=== PATIENT | male | born 1935 | race African-American/Black ===

== ENCOUNTER 2017-09-23 14:03 | Emergency (ER) | payer MEDICARE, MEDICAID ==
[~2017-09-23] VITALS: Ht 185.4 cm; Wt 104.3 kg
[~2017-09-23 14:03] MED LIST: ACETAMINOP650 MG/20. PO; AMBIEN5 MG ORAL; AMBIEN5 MG PO; ASPIR 8181 MG ORAL; BACTRIM-DS1 EA ORAL; CATAPRES0.1 MG PO; COLCHICINE0.6 MG PO; COLCHINE PO; DEXILANT60 MG ORAL; DIOVAN160 MG PO; FUROSEMIDE40 MG ORAL; MULTIPLE VITAM1 EAC5 PO; NEURONTIN300 MG ORAL; NEURONTIN600 MG ORAL; NORCO 10-325 T1 EACH PO; NORCO 10/3251 EA ORAL; PLAVIX75 MG ORAL; PROMETHAZINE/COD5 ML PO; VITAMIN C500 M1 ORAL; ZINC SULFATE220 M1 ORAL; ZYLOPRIM300 MG PO
[2017-09-23 14:10] VITALS: BP 132/63
--- NOTE | 2017-09-23 14:21 | Emergency Room Report ---
History of Present Illness General Chief Complaint: General Complaint Source: Patient, Medical Record Present Illness HPI Patient presents with mass to the right side of the neck Patient himself reports that this was visualized by staff members today He denies any fevers or chills denies any chest pain or shortness of breath He is a dentulous denies any difficulty opening or closing the mouth The area of the neck is tender to palpation otherwise does not have significant discomfort denies any headache denies any posterior neck pain The area in question is localized to the right lateral aspect Allergies: Coded Allergies: No Known Allergies (Verified , 05/29/06) Patient History Past Medical History: see triage record Pertinent Family History: none Reviewed Nursing Documentation: PMH: Agreed; PSxH: Agreed Nursing Documentation-PMH Past Medical History: No History, Except For Hx Cardiac Problems: Yes - CHF Hx Hypertension: Yes Hx Pacemaker: No - PVD, CHRONIC AIRWAY OBSTRUCTION,ULCERS Hx Asthma: Yes Hx COPD: Yes Hx Cancer: No Hx Gastrointestinal Problems: Yes - gerd Hx Neurological Problems: No Review of Systems All Other Systems: negative except mentioned in HPI Physical Exam Vital Signs Date Time Temp Pulse Resp B/P (MAP) Pulse Ox O2 Delivery O2 Flow Rate FiO2 09/23/17 13:59 97.9 78 18 153/74 94 Room Air 97.9 Sp02 EP Interpretation: reviewed, normal General Appearance: well appearing, no apparent distress Head: normocephalic, atraumatic Eyes: bilateral eye PERRL, bilateral eye EOMI ENT: hearing grossly normal, normal pharynx, TMs + canals normal, uvula midline Neck: full range of motion, supple, no meningismus, no bony tend, other - Patient has palpable fluctuance to the right SCM region, area also appears to involve the lower parotid region and the angle of the mandible, no signs of trismus Respiratory: lungs clear, normal breath sounds, no rhonchi, no respiratory distress, no retraction, no accessory muscle use Cardiovascular #1: normal peripheral pulses, regular rate, rhythm, no edema, no gallop, no JVD, no murmur Gastrointestinal: normal bowel sounds, non tender, soft, no mass, no organomegaly, non-distended, no guarding, no hernia, no pulsatile mass, no rebound Genitourinary: no CVA tenderness Musculoskeletal: normal inspection Neurologic: oriented x3, responsive, valve fitter III-XII nml as tested, motor strength/ tone normal, sensory intact Psychiatric: mood/affect normal Skin: other - The swelling to the right lateral neck, is more noticeable when palpated, however there is some mild fullness appreciated as well subjectively Lymphatic: other - The area in question does not palpate in a circumscribed fashion, does not appear to be a palpable node Medical Decision Making Diagnostic Impression: Primary Impression: Neck mass ER Course Given the patient's history and presentation extensive blood work was initiated patient is complex also requiring CT imaging of the neck CT imaging does see evidence of 4.4 cm solid mass involving the right sternocleidomastoid Patient's blood work otherwise at baseline levels In discussion with the patient's primary physician requesting discussion with general surgery I did make contact with consultation the patient will be followed as an outpatient basis with further biopsy and testing Labs Test 09/23/17 14:30 White Blood Count 5.2 K/UL (4.8-10.8) Red Blood Count 5.75 M/UL (4.70-6.10) Hemoglobin 15.8 G/DL (14.2-18.0) Hematocrit 51.3 % (42.0-52.0) Mean Corpuscular Volume 89 FL (80-99) Mean Corpuscular Hemoglobin 27.5 PG (27.0-31.0) Mean Corpuscular Hemoglobin Concent 30.8 G/DL (32.0-36.0) Red Cell Distribution Width 14.9 % (11.6-14.8) Platelet Count 152 K/UL (150-450) Mean Platelet Volume 9.2 FL (6.5-10.1) Neutrophils (%) (Auto) 61.8 % (45.0-75.0) Lymphocytes (%) (Auto) 25.6 % (20.0-45.0) Monocytes (%) (Auto) 5.7 % (1.0-10.0) Eosinophils (%) (Auto) 5.4 % (0.0-3.0) Basophils (%) (Auto) 1.6 % (0.0-2.0) Sodium Level 140 MMOL/L (136-145) Potassium Level 3.7 MMOL/L (3.5-5.1) Chloride Level 105 MMOL/L (98-107) Carbon Dioxide Level 30 MMOL/L (21-32) Anion Gap 5 mmol/L (5-15) Blood Urea Nitrogen 16 mg/dL (7-18) Creatinine 1.2 MG/DL (0.55-1.30) Estimat Glomerular Filtration Rate mL/min (>60) Glucose Level 104 MG/DL (74-106) Lactic Acid Level 1.10 mmol/L (0.66-2.22) Calcium Level 8.6 MG/DL (8.5-10.1) Total Bilirubin 0.5 MG/DL (0.2-1.0) Aspartate Amino Transf (AST/SGOT) 77 U/L (15-37) Alanine Aminotransferase (ALT/SGPT) 94 U/L (12-78) Alkaline Phosphatase 142 U/L (46-116) Total Creatine Kinase 93 U/L (26-308) Creatine Kinase MB 0.8 NG/ML (0.0-3.6) Creatine Kinase MB Relative Index 0.8 Total Protein 8.1 G/DL (6.4-8.2) Albumin 3.2 G/DL (3.4-5.0) Globulin 4.9 g/dL Albumin/Globulin Ratio 0.7 (1.0-2.7) Lipase 56 U/L (73-393) CT/MRI/US Diagnostic Results CT/MRI/US Diagnostic Results : Impression CT neckIMPRESSION: Right-sided neck mass as detailed above highly concerning for malignancy. Cancer workup and surgical/ENT referral/evaluation recommended. Mixing artifact versus thrombus in the right internal jugular vein adjacent to the mass. Cervical lymphadenopathy. Aberrant right subclavian artery. Emphysema with hypoventilatory changes versus pneumonitis and/or edema partially visualized in the lung apices. Last Vital Signs Date Time Temp Pulse Resp B/P (MAP) Pulse Ox O2 Delivery O2 Flow Rate FiO2 09/23/17 13:59 97.9 78 18 153/74 94 Room Air 97.9 Status: improved Disposition: XFER SNF Condition: Stable Additional Instructions: Urgent follow-up outpatient by general surgery Brooke Conway DO Sep 23, 2017 14:21
[2017-09-23 14:30] VITALS: BP 132/63
[2017-09-23 14:46] LABS: BASOPHILS % (AUTO) 1.6 % (0.0-2.0); EOSINOPHILS % (AUTO) 5.4 % (0.0-3.0); HEMATOCRIT 51.3 % (42.0-52.0); HEMOGLOBIN 15.8 G/DL (14.2-18.0); LYMPHOCYTES % (AUTO) 25.6 % (20.0-45.0); MEAN CORPUSCULAR VOLUME 89 FL (80-99); MONOCYTES % (AUTO) 5.7 % (1.0-10.0); NEUTROPHILS % (AUTO) 61.8 % (45.0-75.0); PLATELET COUNT 152 K/UL (150-450); RED BLOOD COUNT 5.75 M/UL (4.70-6.10); RED CELL DISTRIBUTION WIDTH 14.9 % (11.6-14.8); WHITE BLOOD COUNT 5.2 K/UL (4.8-10.8)
[2017-09-23 14:57] LABS: ANION GAP 5 mmol/L (5-15); BLOOD UREA NITROGEN 16 mg/dL (7-18); CALCIUM 8.6 MG/DL (8.5-10.1); CARBON DIOXIDE 30 MMOL/L (21-32); CHLORIDE 105 MMOL/L (98-107); CREATININE 1.2 MG/DL (0.55-1.30); POTASSIUM 3.7 MMOL/L (3.5-5.1); SODIUM 140 MMOL/L (136-145)
[2017-09-23 15:18] LABS: ALANINE AMINOTRANSFERASE 94 U/L (12-78); ALBUMIN 3.2 G/DL (3.4-5.0); ALBUMIN/GLOBULIN RATIO 0.7 (1.0-2.7); ALKALINE PHOSPHATASE 142 U/L (46-116); ASPARTATE AMINO TRANSFERASE 77 U/L (15-37); BILIRUBIN,TOTAL 0.5 MG/DL (0.2-1.0); CKMB 0.8 NG/ML (0.0-3.6); CREATINE KINASE 93 U/L (26-308)
--- NOTE | 2017-09-23 17:29 | Diagnostic Imaging Report ---
Indication: Dyspnea Technique: XRAY Chest 1v Comparison: 02/18/2012 Findings: Heart size is within normal limits. Atherosclerotic calcifications noted in the aortic arch. There is interstitial opacification and patchy bilateral airspace opacities. Question trace left pleural effusion. No pneumothorax. No acute osseous abnormality seen. Impression: Interstitial and hazy airspace opacities suggesting a degree of fluid overload/CHF. Pneumonia is not entirely excluded. Clinical correlation and follow-up exam recommended.
[2017-09-23 18:12] VITALS: BP 139/60
[2017-09-23 19:01] VITALS: BP 146/69
--- NOTE | 2017-09-23 19:28 | Diagnostic Imaging Report ---
Indication: Neck mass Technique: CT of the soft tissues of the neck utilizing automated exposure control with intravenous contrast. Venous scanning performed. Sagittal and coronal reformats. CT dose: Total DLP 616.02 mGycm; CTDI vol 19.51 mGy Comparison: None Findings: There is a solid mass lesion measuring approximately 4.4 cm located between the right sternocleidomastoid muscle and the right carotid space at level of the hyoid bone. A distinct fat plane between the mass and the sternocleidomastoid muscle is not seen and infiltration/extension to the right sternocleidomastoid muscle is not excluded. There is effacement of fat planes by the mass between the right carotid space, right mucosal pharyngeal space and right submandibular space. There is asymmetric thickening/enlargement of the right right mucosal pharyngeal space/hypopharynx with effacement of the right piriform sinus. There is obliteration of the lower portions of the right internal jugular vein with mixing artifact or thrombus in the more superior portions of the right internal jugular vein (series 5 image #26). Tumor invasion into the internal jugular vein on the right is not excluded. There is right-sided cervical lymphadenopathy, with a right-sided jugular chain lymph node measuring up to 11 mm in short axis. Small lymph nodes are also noted on the left. The airway is patent. Thoracic aorta appears normal in caliber with mild atherosclerotic calcification. There is an aberrant right subclavian artery which is mild to moderately calcified. Carotid arteries and vertebral arteries appear patent. Imaged intracranial structures grossly unremarkable. Patient is edentulous. There are multilevel degenerative changes of the cervical spine. There is pulmonary emphysema with hypoventilatory changes or pneumonitis in the visualized upper lungs. IMPRESSION: Right-sided neck mass as detailed above highly concerning for malignancy. Cancer workup and surgical/ENT referral/evaluation recommended. Mixing artifact versus thrombus in the right internal jugular vein adjacent to the mass. Cervical lymphadenopathy. Aberrant right subclavian artery. Emphysema with hypoventilatory changes versus pneumonitis and/or edema partially visualized in the lung apices. The CT scanner at [facility] is accredited by the [employer] and the scans are performed using protocols designed to limit radiation exposure to as low as reasonably achievable to attain images of sufficient resolution adequate for diagnostic evaluation.
[2017-09-23 20:00] VITALS: BP 144/99
[2017-09-23 20:15] VITALS: BP 144/99
== END 2017-09-23 20:15 ==
LOC: EDBD 14:03 → EMR 14:25
DX: R22.1 Localized swelling, mass and lump, neck (principal); J44.9 Chronic obstructive pulmonary disease, unspecified; I11.0 Hypertensive heart disease with heart failure; I50.9 Heart failure, unspecified; K21.9 Gastro-esophageal reflux disease without esophagitis; R59.0 Localized enlarged lymph nodes
CPT/HCPCS: 36415; 70491; 71045; 80053; 82550; 82553; 83605; 83690; 85025; 87040; 93005; 99284; Q9967

== ENCOUNTER 2017-10-12 06:41 | Day surgery (SDC) | payer MEDICARE, MEDICAID ==
[~2017-10-12] VITALS: Ht 172.7 cm; Wt 99.8 kg
[2017-10-12] VITALS (10 sets, daily range): BP systolic 126–156; BP diastolic 63–77
[2017-10-12] MEDS ORDERED: LATANOPROST2.5 ML BOTH EYES (09:15)
[2017-10-12] MEDS ORDERED: Lidocaine 1% 10mg/ml/Epi 0.005mg/ml 30ml vial INJ ONE (09:57)
[2017-10-12] MEDS ORDERED: Lidocaine 1% MPF 10mg/ml 5ml ONE (10:34)
[2017-10-12] MEDS ORDERED: Propofol 200mg/20ml IV ONE (10:34)
[2017-10-12] MEDS ORDERED: fentaNYL 100 mcg/2 mL IV ONE (11:00)
[2017-10-12] MEDS ORDERED: LR 1000ml ONE (11:00)
[2017-10-12] MEDS ORDERED: Midazolam 2mg/2ml Inj ONE (11:00)
[2017-10-12] MEDS ORDERED: NS Irrig 1000ml ONE (11:00)
[2017-10-12] MEDS ORDERED: Sterile Water Irrig 1000ml IRRIG ONE (11:00)
--- NOTE | 2017-10-12 11:06 | Anethesia Preoperative Eval ---
Anesthesia Pre-op PMH/ROS General Date of Evaluation: Oct 12, 2017 Time of Evaluation: 10:40 Anesthesiologist: Isa ASA Score: ASA 3 Mallampati Score Class I : Soft palate, uvula, fauces, pillars visible Class II: Soft palate, uvula, fauces visible Class III: Soft palate, base of uvula visible Class IV: Only hard plate visible Mallampati Classification: Class III Surgeon: Félix Diagnosis: R neck mass Surgical Procedure: R neck Bx Anesthesia History: none Family History: no anesthesia problems Allergies: Coded Allergies: No Known Allergies (Verified , 05/29/06) Past Medical History Cardiovascular: Reports: HTN, CAD; Denies: [place], valve dz, arrhythmia Pulmonary: Reports: COPD; Denies: asthma, KRYSTAL, other Gastrointestinal/Genitourinary: Reports: GERD, CRI; Denies: ESRD, other Neurologic/Psychiatric: Reports: depression/anxiety; Denies: dementia, CVA, TIA, other Endocrine: Reports: DM; Denies: hypothyroidism, steroids, other HEENT: Denies: cataract (L), cataract (R), glaucoma, MAKAH (L), MAKAH (R), other Hematology/Immune: Reports: bleeding disorder - anticoagulated; Denies: anemia, DVT, other Musculoskeletal/Integumentary: Reports: DJD; Denies: OA, RA, DDD, edema, other Other: obesity PMH Narrative: as above PSxH Narrative: R foot transmetatarsal amputation Anesthesia Pre-op Phys. Exam Physician Exam Last Vital Signs Date Time Temp Pulse Resp B/P (MAP) Pulse Ox O2 Delivery O2 Flow Rate FiO2 10/12/17 08:25 97.7 72 18 141/71 97 Room Air 97.7 Constitutional: NAD Neurologic: CN 2-12 intact Cardiovascular: RRR, no M/R/G Respiratory: CTA Gastrointestinal: other - obesity Airway Exam Mallampati Score: Class III MO: limited Neck: stiff Teeth: missing Dentures: no upper, no lower Anesthesia Pre-op A/P Labs Coagulation Test 10/12/17 09:00 Prothrombin Time 10.0 SEC (9.30-11.50) Prothromb Time International Ratio 1.0 (0.9-1.1) Activated Partial Thromboplast Time 31 SEC (23-33) Risk Assessment & Plan Assessment: ASA 3 Plan: GA with LMA Status Change Before Surgery: No Pre-Antibiotics Drug: Ancef 1 gr. Given Within 1 Hr of Incision: Yes Time Given: 11:06 BLANCA BURRELL M.D. Oct 12, 2017 11:06
[2017-10-12] MEDS ORDERED: LR 1000ml 1,000 ML IVLG SCH (11:17)
--- NOTE | 2017-10-12 11:27 | Pre-Procedure Note/Attestation ---
Pre-Procedure Note/Attestation Complete Prior to Procedure Planned Procedure: right Procedure Narrative: biopsy of right neck mass Indications for Procedure Pre-Operative Diagnosis: right neck mass Attestation I attest that I discussed the nature of the procedure; its benefits; risks and complications; and alternatives (and the risks and benefits of such alternatives ), prior to the procedure, with the patient (or the patient's legal sales representative groceries). I attest that, if there was a reasonable possibility of needing a blood transfusion, the patient (or the patient's legal sales representative groceries) was given the [facility] standardized written summary, pursuant to the Devante Scar Blood Safety Act ([place] Health and Safety Code # 1645, as amended). I attest that I re-evaluated the patient just prior to the surgery and that there has been no change in the patient's H&P, except as documented below: Lorenzo Quintero Oct 12, 2017 11:27
--- NOTE | 2017-10-12 11:27 | Brief Operative Note ---
Immediate Post Operative Note Operative Note Pre-op Diagnosis: right neck mass Procedure: biopsy of right neck mass Post-op Diagnosis: same as pre-op Surgeon: chandu Anesthesiologist: gabe Anesthesia: general, local Specimen: yes Complications: none Condition: stable Fluids: see records Estimated Blood Loss: minimal Drains: none Implant(s) used?: No Lorenzo Quintero Oct 12, 2017 11:27
[2017-10-12] MEDS ORDERED: fentaNYL 100 mcg/2 mL IV PRN (11:30)
[2017-10-12] MEDS ORDERED: DiphenhydrAMINE 50mg/ml Inj IVP PRN (11:30)
--- NOTE | 2017-10-12 11:44 | Immediate Post-Op Evaluation ---
Immediate Post-Op Evalulation Immediate Post-Op Evalulation Procedure: R neck excisional Bx Date of Evaluation: Oct 12, 2017 Time of Evaluation: 11:42 IV Fluids: 800 Blood Products: none Estimated Blood Loss: 50 Urinary Output: none Blood Pressure Systolic: 128 Blood Pressure Diastolic: 70 Pulse Rate: 85 Respiratory Rate: 20 O2 Sat by Pulse Oximetry: 99 Temperature (Fahrenheit): 97.6 Pain Score (1-10): 1 Nausea: No Vomiting: No Complications none Patient Status: reacts, patent, none Hydration Status: adequate BLANCA BURRELL M.D. Oct 12, 2017 11:44
[2017-10-12] MEDS ORDERED: Norco 5mg/325mg tab ORAL PRN (13:30)
[2017-10-12] MEDS ORDERED: Tylenol #3 tab (300mg/30mg) ORAL PRN (13:30)
[2017-10-12] MEDS ORDERED: D5 1/2NS 1,000 ML IV SCH (13:30)
--- NOTE | 2017-10-12 20:45 | Operative Note - Dictated ---
DATE OF OPERATION: 10/12/2017 PREOPERATIVE DIAGNOSIS: Right neck mass. POSTOPERATIVE DIAGNOSIS: Right neck mass. OPERATION PERFORMED: Biopsy of right neck mass. ATTENDING SURGEON: Lorenzo Quintero M.D. GRANITE SANDBLASTER APPRENTICE: None. ANESTHESIOLOGIST: Stephen Moss M.D. ANESTHESIA: General RISK MODELER plus local. SPECIMENS: Multiple 18-gauge core biopsies of right neck mass. COMPLICATIONS: None. CONDITION: Stable. FLUIDS: Please see anesthesia records. ESTIMATED BLOOD LOSS: Minimal. DRAINS: None. IMPLANTS: None. WOUND CLASSIFICATION: Class 1. ANTIBIOTICS: The patient was given 2 g IV Ancef 1 hour prior to cut time. COUNTS: Sponge and needle count correct x2. INDICATIONS FOR PROCEDURE: This is an 82-year-old male, alf resident, who few weeks ago was noted to have a worsening tender growing right neck mass. The patient was brought to the emergency department for evaluation and had a CT scan, which identified a large compressing right neck mass with thrombosed internal jugular, but without any tracheal deviation. The patient was deemed stable at that time and discharged and came to follow up with me. I was able to see the patient in the nursing facility that he resides and evaluated and noted a large tender right neck mass that was more fixed than mobile. Given these findings of biopsy, there was a high suspicion for particularly a malignant process given the patient's long smoking tobacco history. Given this, biopsy was indicated and recommended. Given the location of the mass and it is detailed as above and noted on the CT, recommendation was made to have a biopsy done in the operating room under close observation. Risks, benefits, and alternatives were discussed with the patient and his daughter at bedside, who consented to surgery. The biopsy was indicated and recommended to be done as soon as possible for tissue diagnosis. OPERATIVE NOTE: The patient was taken to the operating room and placed on the operating table in supine position with bilateral arms out. All bony prominences were well padded. Preoperative time-out was taken in identifying the patient, operative procedure, operating room surgery, procedure, and surgical staff. Side was marked preoperatively. SCDs were placed. General anesthesia was induced and the patient was intubated. The right neck was prepped and draped in the standard surgical fashion. The mass was easily palpable and identified. A 1 to 2 cm incision was made overlying the apex of the mass and carried down through the platysma and muscles to the mass, which was noted to be hard, firm, and with a whitish discoloration and hypervascular. Multiple 18-gauge [place] core biopsies were taken of the mass and sent to pathology for review. Hemostasis was achieved with electrocautery and pressure as necessary. Upon completion, local anesthetic was infiltrated throughout the operative site. At this time, the wound was closed in a two-layer fashion beginning with the platysmal layer using a 3-0 Vicryl suture followed by skin using 4-0 Monocryl subcuticular suture. The patient tolerated the procedure well. Dressings were applied. The patient was sent to the PACU in stable condition. Lorenzo Quintero M.D. DR: DARRELL JOB#: [id number] CC: MARIELENA
== END 2017-10-12 15:05 | disposition home or self-care (01) ==
LOC: SUR 06:41
DX: C76.0 Malignant neoplasm of head, face and neck (principal); I11.9 Hypertensive heart disease without heart failure; J44.9 Chronic obstructive pulmonary disease, unspecified; K21.9 Gastro-esophageal reflux disease without esophagitis; E11.9 Type 2 diabetes mellitus without complications; M19.90 Unspecified osteoarthritis, unspecified site; E66.9 Obesity, unspecified; Z68.33 Body mass index [BMI] 33.0-33.9, adult
CPT/HCPCS: 21550; 36415; 85610; 85730; J0690; J2250; J2704; J3010; J7120; 94003; 94150

== ENCOUNTER 2017-11-25 12:55 | Outpatient (CLI) | payer MEDICARE, MEDICAID ==
[~2017-11-25 12:55] MED LIST changes: +LATANOPROST2.5 ML BOTH EYES
--- NOTE | 2017-11-25 17:28 | GI Initial Consult Note ---
History of Present Illness General Date patient seen: Nov 25, 2017 Time patient seen: 15:00 Referring physician: SHANTANU Reason for Consultation: PEG Present Illness HPI HISTORY OF PRESENT ILLNESS: This is a 82-year-old male with history of peripheral vascular disease and heavy smoker in the past who presents for PEG placement. The patient is a senior living resident, who few months ago was noted to have a worsening tender growing right neck mass. The patient was brought to the emergency department for evaluation and had a CT scan, which identified a large compressing right neck mass with thrombosed internal jugular, but without any tracheal deviation. The patient is now s/p biopsy of the right neck mass, scheduled for chemotherapy, thus referred to us for PEG placement for future anticipation of dysphagia. Pt presents today with GI symptoms. Denies any unintentional weight loss or changes in dietary habits. Patient is a fall risk, uses wheelchair but able to ambulate short distances. Home Meds Reported Medications Latanoprost* (XALATAN*) 2.5 Ml Drops, 1 DROP BOTH EYES BEDTIME, ML 0 Refills 10/12/17 Multivitamin With Minerals (MULTIPLE VITAMIN) 1 Each Tablet, 1 EACH PO, TAB 04/16/14 Zolpidem Tartrate* (AMBIEN*) 5 Mg Tablet, 5 MG ORAL BEDTIME PRN for Insomnia, TAB 04/16/14 Clopidogrel Bisulfate* (PLAVIX*) 75 Mg Tablet, 75 MG ORAL DAILY, TAB 03/19/14 Aspirin* (ASPIR 81*) 81 Mg Tablet.dr, 81 MG ORAL DAILY, TAB 03/19/14 Gabapentin* (NEURONTIN*) 600 Mg Tablet, 600 MG ORAL HS, TAB 03/19/14 Gabapentin (Neurontin) 300 Mg Cap, 300 MG ORAL THREE TIMES A DAY, #15 CAP 0 Refills 03/19/14 Furosemide* (LASIX*) 40 Mg Tablet, 40 MG ORAL BID, TAB 03/19/14 Hydrocodone/Acetaminophen (Hydrocodon-Acetaminophn 10-325) 1 Ea Tab, 1 TAB ORAL Q4H PRN for For Pain, #30 TAB 0 Refills 03/19/14 Colchicine* (COLCHICINE*) 0.6 Mg Tablet, 0.6 MG PO BID 08/03/12 Acetaminophen* (TYLENOL*) 650 Mg/20.3 Ml Oral.susp, 650 MG PO PRN Q4H PRN TEMP> 100 07/07/12 Hydrocodone Bit/Acetaminophen 10-325* (NORCO 10-325*) 1 Each Tablet, 1 TAB PO PRN Q6H, #10 TAB PRN PAIN 07/07/12 Promethazine/Codeine* (PROMETHAZINE/CODEINE*) 5 Ml Udc, 5 ML PO PRN Q8H, #2 OZ Take 1 teaspoon by mouth every four hours as needed for cough 07/07/12 Allopurinol* (ZYLOPRIM*) 300 Mg Tablet, 300 MG PO DAILY, #15 TAB 07/07/12 Med list reviewed/reconciled: Yes Allergies: Coded Allergies: No Known Allergies (Verified , 05/29/06) Patient History History Provided By: Patient, Medical Record [facility] Narrative Includes history of hypertension, CHF, COPD, and gastroesophageal reflux disease. The patient has a history of peripheral vascular disease and has had vascular surgeries of the lower extremities. Review of Systems All Other Systems: negative except mentioned in HPI Physical Exam T 97.6 BP 115/94 P 73 94 RA HT 5'8 BP 220.3lbs Sp02 EP Interpretation: reviewed, normal General Appearance: well appearing, no apparent distress, alert Head: normocephalic EENT: PERRL/EOMI, normal ENT inspection Neck: supple Respiratory: normal breath sounds, no respiratory distress Cardiovascular: normal rate Gastrointestinal: normal inspection, non tender, soft, normal bowel sounds, non -distended Rectal: deferred Genitourinary: deferred Musculoskeletal: normal inspection, back normal Neurologic: normal inspection, alert, oriented x3, responsive Psychiatric: normal inspection, judgement/insight normal, memory normal Skin: normal inspection, normal color, no rash, warm/dry, palpation normal, well hydrated Lymphatic: normal inspection, no adenopathy GI: Plan Problems: (1) Encounter for PEG (percutaneous endoscopic gastrostomy) (2) Encounter for chemotherapy management (3) Neck mass Plan EGD/PEG scheduled for 12/29/17. - NPO @ [place] day prior procedure explained. - orders sent in patient chart Seen with Dr. Crespo. Thank you for this patient referral. The patient was seen and examined at bedside and all new and available data was reviewed in the patients chart. I agree with the above findings, impression and plan. (Patient seen earlier today. Signature stamp does not reflect patient encounter time.). - MD Xiomara [facility] ILLUSTRATOR Nov 25, 2017 17:28
== END 2017-11-25 13:28 | disposition home or self-care (01) ==
LOC: PAN 12:55
DX: R22.1 Localized swelling, mass and lump, neck (principal); I50.9 Heart failure, unspecified; I10 Essential (primary) hypertension; J44.9 Chronic obstructive pulmonary disease, unspecified; K21.9 Gastro-esophageal reflux disease without esophagitis; Z91.81 History of falling
CPT/HCPCS: 99202

== ENCOUNTER 2017-11-29 08:26 | Day surgery (SDC) | payer MEDICARE, MEDICAID ==
[~2017-11-29] VITALS: Ht 170.2 cm; Wt 99.8 kg
[2017-11-29] VITALS (7 sets, daily range): BP systolic 150–168; BP diastolic 83–101
--- NOTE | 2017-11-29 06:36 | Anethesia Preoperative Eval ---
Anesthesia Pre-op PMH/ROS General Date of Evaluation: Nov 29, 2017 Time of Evaluation: 06:30 Anesthesiologist: gail ASA Score: ASA 4 Mallampati Score Class I : Soft palate, uvula, fauces, pillars visible Class II: Soft palate, uvula, fauces visible Class III: Soft palate, base of uvula visible Class IV: Only hard plate visible Mallampati Classification: Class III Surgeon: stephanie Diagnosis: gerd Surgical Procedure: egd w/ PEG Anesthesia History: none Family History: no anesthesia problems Allergies: Coded Allergies: No Known Allergies (Verified , 05/29/06) Medications: see eMAR Past Medical History Cardiovascular: Reports: HTN, other - chf, pacemaker, Pulmonary: Reports: asthma, COPD Gastrointestinal/Genitourinary: Reports: GERD Musculoskeletal/Integumentary: Reports: other - gout, right foot/toes amputations Anesthesia Pre-op Phys. Exam Physician Exam Constitutional: NAD Neurologic: CN 2-12 intact Cardiovascular: RRR Respiratory: CTA Gastrointestinal: S/NT/ND Airway Exam Mallampati Score: Class II MO: limited Neck: humphrey lateral neck fullness TMD: 2fb ROM: limited Teeth: missing Anesthesia Pre-op A/P Studies Pre-op Studies: EKG - nsr Risk Assessment & Plan Assessment: asa4 Plan: mac Status Change Before Surgery: No Pre-Antibiotics Drug: Natividad Torres MD Nov 29, 2017 06:36
[~2017-11-29 08:26] MED LIST changes: +Atropine Inj 1mg/10ml Syr IV PRN; +DiphenhydrAMINE 50mg/ml Inj IVP PRN; +Midazolam 2mg/2ml Inj IVP PRN; +fentaNYL 100 mcg/2 mL IV PRN
[2017-11-29] MEDS ORDERED: Lidocaine 1% MPF 10mg/ml 5ml ONE (08:27)
[2017-11-29] MEDS ORDERED: Propofol 200mg/20ml IV ONE (08:27)
[2017-11-29] MEDS ORDERED: cefOXitin 1gm Inj ONE (08:27)
--- NOTE | 2017-11-29 09:48 | Short Stay Surgery H&P ---
History of Present Illness History of Present Illness Chief Complaint see recent consult note HPI Deepak Valentino is a 82 year old male who was admitted on for GERD Patient History Allergies: Coded Allergies: No Known Allergies (Verified , 05/29/06) Medication History Scheduled Acetaminophen* (Tylenol*), 650 MG PO PRN Q4H PRN TEMP>100, (Reported) Allopurinol* (Zyloprim*), 300 MG PO DAILY, (Reported) Aspirin* (Aspir 81*), 81 MG ORAL DAILY, (Reported) Clopidogrel Bisulfate* (Plavix*), 75 MG ORAL DAILY, (Reported) Colchicine* (Colchicine*), 0.6 MG PO BID, (Reported) Furosemide* (Lasix*), 40 MG ORAL BID, (Reported) Gabapentin (Neurontin), 300 MG ORAL THREE TIMES A DAY, (Reported) Gabapentin* (Neurontin*), 600 MG ORAL HS, (Reported) Hydrocodone Bit/Acetaminophen 10-325* ([place] 10-325*), 1 TAB PO PRN Q6H, ( Reported) Latanoprost* (Xalatan*), 1 DROP BOTH EYES BEDTIME, (Reported) Promethazine/Codeine* (Promethazine/Codeine*), 5 ML PO PRN Q8H, (Reported) Scheduled PRN Hydrocodone/Acetaminophen (Hydrocodon-Acetaminophn 10-325), 1 TAB ORAL Q4H PRN for For Pain, (Reported) Zolpidem Tartrate* (Ambien*), 5 MG ORAL BEDTIME PRN for Insomnia, (Reported) Miscellaneous Medications Multivitamin With Minerals (Multiple Vitamin), 1 EACH PO, (Reported) Plan Attestation Are the patient's medical conditions optimized for surgery? Marco Crespo MD Nov 29, 2017 09:48
--- NOTE | 2017-11-29 09:48 | Pre-Procedure Note/Attestation ---
Pre-Procedure Note/Attestation Complete Prior to Procedure Planned Procedure: not applicable Procedure Narrative: egd/peg Indications for Procedure Pre-Operative Diagnosis: dysphagia Attestation I attest that I discussed the nature of the procedure; its benefits; risks and complications; and alternatives (and the risks and benefits of such alternatives ), prior to the procedure, with the patient (or the patient's legal loan servicing representative). I attest that, if there was a reasonable possibility of needing a blood transfusion, the patient (or the patient's legal loan servicing representative) was given the [facility] standardized written summary, pursuant to the Devante Scar Blood Safety Act ([place] Health and Safety Code # 1645, as amended). I attest that I re-evaluated the patient just prior to the surgery and that there has been no change in the patient's H&P, except as documented below: Marco Crespo MD Nov 29, 2017 09:48
--- NOTE | 2017-11-29 15:24 | Endoscopy Procedure Note ---
Endoscopy Procedure Note General Indication for Procedure: dysohagia Procedures Performed: EGD, PEG Operative Findings/Diagnosis: same Specimen: none Pt Tolerated Procedure Well: Yes Estimated Blood Loss: none Anesthesia Anesthesiologist: gail Anesthesia: MAC Inserted Devices Implant(s) used?: No GI Core Measures 50 yrs or older w/o bx or poly: Not Applicable 10yrs. F/U not recommended: Not Applicable Marco Crespo MD Nov 29, 2017 15:24
--- NOTE | 2017-11-29 17:00 | Procedure Note ---
DATE OF PROCEDURE: 11/29/2017 SURGEON: Marco Crespo M.D. REFERRING PHYSICIAN: Emmy Day M.D. PROCEDURE: Upper endoscopy with PEG placement. ANESTHESIA: Per Dr. Mota. INSTRUMENT: Olympus adult upper scope. INDICATION: Throat cancer, pending chemoradiation and needed G-tube placement for possible future dysphagia The procedure, risks, benefits, and possible consequences, including hemorrhage, aspiration, perforation and infection, and alternative treatments, were explained to the patient/legal guardian by Dr. Marco Crespo and the patient/legal guardian understood and accepted these risks. DESCRIPTION OF PROCEDURE: After informed consent was obtained and the patient was sedated, Olympus upper endoscope was advanced from mouth into the second portion of duodenum and retroflexion was performed in the stomach. The patient has evidence of mass sitting in the throat area, making this procedure little bit challenging. There was little bit of bleeding from the scope passing through the mouth into the esophagus. In the stomach, there was no diffuse gastritis. Then, under endoscopic guidance and under sterile condition, a 20-Macedonian pull type of G-tube was successfully placed in the epigastric area. The distance from the tip of the tube to skin was about less than 3 cm in size. The patient tolerated the procedure well without any complication. SUMMARY OF FINDINGS: 1. Throat cancer. 2. Status post successful G-tube placement. RECOMMENDATION: 1. Abdominal binder. 2. Elevate head of the bed at all times. 3. G-tube flush. G-tube care. Start tube feeding later today. The patient received dose of antibiotics prior to this procedure. I want to thank Dr. Day for this kind referral. Marco Crespo M.D. DR: NERI JOB#: [id number] CC: Emmy Day M.D.; Fax#: [phone]
--- NOTE | 2017-11-29 19:28 | Immediate Post-Op Evaluation ---
Immediate Post-Op Evalulation Immediate Post-Op Evalulation Procedure: egd/peg Date of Evaluation: Nov 29, 2017 Time of Evaluation: 14:57 IV Fluids: 700ml 0.9ns Blood Products: none Estimated Blood Loss: negligible Blood Pressure Systolic: 165 Blood Pressure Diastolic: 101 Pulse Rate: 81 Respiratory Rate: 18 O2 Sat by Pulse Oximetry: 95 Temperature (Fahrenheit): 98.1 Pain Score (1-10): 0 Nausea: No Vomiting: No Complications none Patient Status: awake, reacts, patent Hydration Status: adequate Drug: cefoxitin 1 gram Time Given: 14:10 Natividad Mota MD Nov 29, 2017 19:28
--- NOTE | 2017-11-29 19:30 | 48 Hour Post Anesthesia Eval ---
Post Anesthesia Evaluation Procedure: egd/peg Date of Evaluation: Nov 29, 2017 Time of Evaluation: 14:59 Blood Pressure Systolic: 151 0: 88 Pulse Rate: 78 Respiratory Rate: 18 O2 Sat by Pulse Oximetry: 96 Airway: patent Nausea: No Vomiting: No Pain Intensity: 0 Hydration Status: adequate Cardiopulmonary Status: stable Mental Status/LOC: patient returned to baseline Post-Anesthesia Complications: none Natividad Mota MD Nov 29, 2017 19:30
--- NOTE | 2017-11-30 14:11 | Cardiology Report ---
APPROVED REPORT EKG Measurement Heart [id number] Normal sinus rhythm Normal ECG
== END 2017-11-29 16:10 | disposition home or self-care (01) ==
LOC: GAS 08:26
DX: C14.0 Malignant neoplasm of pharynx, unspecified (principal); R13.10 Dysphagia, unspecified; K21.9 Gastro-esophageal reflux disease without esophagitis; Z79.82 Long term (current) use of aspirin; G47.00 Insomnia, unspecified; I11.0 Hypertensive heart disease with heart failure; I50.9 Heart failure, unspecified; Z95.0 Presence of cardiac pacemaker; J44.9 Chronic obstructive pulmonary disease, unspecified
CPT/HCPCS: 43246; 93005; J0694; J2704